=== PATIENT | female | born 1965 | race Caucasian/White ===

== ENCOUNTER → 2016-07-31 | Outpatient (CLI) | payer OTHER, MEDICARE ==
[~2016-07-31] VITALS: Ht 160 cm; Wt 81.8 kg
[~2016-07-31] MED LIST: FLONASE ALLERG9.9 ML NS; ZYRTEC10 M3 PO
[2016-07-31 11:22] VITALS: BP 185/95
== END ==
LOC: AMSURD 10:50
DX: I10 Essential (primary) hypertension (principal)

== ENCOUNTER → 2018-12-26 | Outpatient (CLI) | payer BC ==
[2016-07-31 11:22] VITALS: BP 185/95
[2018-12-26 11:01] LABS: BASO # 0.1 (0.02-0.10); EOS # 0.3 (0.04-0.40); EOS % 4.3 % (1.0-5.0); HEMATOCRIT 44.2 % (37.0-47.0); HEMOGLOBIN 14.2 g/dL (12.5-16.0); LYMPH# 2.2 (1.50-4.00); MEAN CELL VOLUME 97 fl (78-100); MEAN CORPUSCULAR HEMOGLOBIN 31 pg (27-31); MEAN CORPUSCULAR HGB CONC 32 g/dL (33-37); MEAN PLATELET VOLUME 9.8 fl (7.4-10.4); MONO # 0.7 (0.20-0.80); NEU # 3.2 (1.40-6.50); PLATELET COUNT 339 K/mm3 (130-400); RED BLOOD COUNT 4.54 M/mm3 (4.10-5.30); RED CELL DISTRIBUTION WIDTH 13.8 % (11.5-14.5); WHITE BLOOD COUNT 6.5 K/mm3 (4.8-10.8)
[2018-12-26 11:09] LABS: POTASSIUM 3.8 mmol/L (3.5-5.1)
[2018-12-26 11:10] LABS: ALBUMIN 4.1 g/dL (3.5-5.0)
[2018-12-26 11:11] LABS: CALCIUM 9.5 mg/dL (8.3-10.5)
[2018-12-26 11:12] LABS: TOTAL PROTEIN 7.1 g/dL (6.4-8.3)
[2018-12-26 11:14] LABS: TOTAL BILIRUBIN 0.4 mg/dL (0.2-1.2)
== END ==
LOC: LAB 10:34
PROVIDERS: Physician Assistant
DX: Z00.00 Encounter for general adult medical examination without abnormal findings (principal); Z13.220 Encounter for screening for lipoid disorders; Z13.1 Encounter for screening for diabetes mellitus; I10 Essential (primary) hypertension; I83.93 Asymptomatic varicose veins of bilateral lower extremities; Z88.9 Allergy status to unspecified drugs, medicaments and biological substances

== ENCOUNTER → 2019-04-09 | Day surgery (SDC) | payer BC ==
[2016-07-31 11:22] VITALS: BP 185/95
== END | disposition home or self-care (01) ==
LOC: MSO 08:40
DX: Z12.11 Encounter for screening for malignant neoplasm of colon (principal); Z80.0 Family history of malignant neoplasm of digestive organs; I10 Essential (primary) hypertension; J45.909 Unspecified asthma, uncomplicated; Z79.899 Other long term (current) drug therapy; Z87.891 Personal history of nicotine dependence; K21.9 Gastro-esophageal reflux disease without esophagitis; K57.90 Diverticulosis of intestine, part unspecified, without perforation or abscess without bleeding; K38.2 Diverticulum of appendix
CPT/HCPCS: 00812; J2704; J7120

== ENCOUNTER → 2021-12-21 | Outpatient (CLI) | payer BC ==
[2021-12-21 14:27] LABS: BASO # 0.04 K/mm3 (0.02-0.10); EOS # 0.18 K/mm3 (0.04-0.40); EOS % 2.1 % (1.0-5.0); HEMATOCRIT 44.6 % (37.0-47.0); LYMPH# 3.18 K/mm3 (1.50-4.00); MEAN CELL VOLUME 96 fl (78-100); MEAN CORPUSCULAR HEMOGLOBIN 32 pg (27-31); MEAN CORPUSCULAR HGB CONC 34 g/dL (33-37); MEAN PLATELET VOLUME 9.4 fl (7.4-10.4); MONO # 0.73 K/mm3 (0.20-0.80); NEU # 4.41 K/mm3 (1.40-6.50); PLATELET COUNT 362 K/mm3 (130-400); RED BLOOD COUNT 4.65 M/mm3 (4.10-5.30); RED CELL DISTRIBUTION WIDTH 12.8 % (11.5-14.5); WHITE BLOOD COUNT 8.6 K/mm3 (4.8-10.8)
[2021-12-21 14:33] LABS: ALBUMIN 4.4 g/dL (3.5-5.0); POTASSIUM 3.8 mmol/L (3.5-5.1)
[2021-12-21 14:34] LABS: CALCIUM 9.6 mg/dL (8.3-10.5)
[2021-12-21 14:36] LABS: TOTAL PROTEIN 7.7 g/dL (6.4-8.3)
[2021-12-21 14:37] LABS: TOTAL BILIRUBIN 0.3 mg/dL (0.2-1.2)
== END ==
LOC: LAB 13:57
PROVIDERS: Physician Assistant
DX: Z00.00 Encounter for general adult medical examination without abnormal findings (principal); Z13.29 Encounter for screening for other suspected endocrine disorder; Z13.1 Encounter for screening for diabetes mellitus; K90.9 Intestinal malabsorption, unspecified; E78.5 Hyperlipidemia, unspecified; I10 Essential (primary) hypertension; Z88.9 Allergy status to unspecified drugs, medicaments and biological substances

== ENCOUNTER → 2021-12-26 | Outpatient (CLI) | payer BC | LOC: MAMMO 15:15 | DX: Z12.31 Encounter for screening mammogram for malignant neoplasm of breast (principal); N63.10 Unspecified lump in the right breast, unspecified quadrant ==

== ENCOUNTER → 2022-03-26 | Outpatient (CLI) | payer BC | LOC: RAD 07:22 | DX: N63.15 Unspecified lump in the right breast, overlapping quadrants (principal) | CPT/HCPCS: 15989; 15990; A4648 ==

== ENCOUNTER → 2023-06-13 | Outpatient (CLI) | payer BC ==
[2023-06-13 10:58] LABS: ALBUMIN 4.1 g/dL (3.5-5.0)
[2023-06-13 10:59] LABS: CALCIUM 9.9 mg/dL (8.3-10.5)
[2023-06-13 11:02] LABS: TOTAL BILIRUBIN 0.4 mg/dL (0.2-1.2)
[2023-06-13 11:09] LABS: BASO # 0.04 K/mm3 (0.02-0.10); EOS # 0.26 K/mm3 (0.04-0.40); EOS % 3.4 % (1.0-5.0); HEMATOCRIT 44.6 % (37.0-47.0); HEMOGLOBIN 14.8 g/dL (12.5-16.0); LYMPH# 2.69 K/mm3 (1.50-4.00); MEAN CELL VOLUME 98 fl (78-100); MEAN CORPUSCULAR HEMOGLOBIN 33 pg (27-31); MEAN CORPUSCULAR HGB CONC 33 g/dL (33-37); MEAN PLATELET VOLUME 9.6 fl (7.4-10.4); MONO # 0.69 K/mm3 (0.20-0.80); NEU # 3.98 K/mm3 (1.40-6.50); PLATELET COUNT 338 K/mm3 (130-400); RED BLOOD COUNT 4.55 M/mm3 (4.10-5.30); RED CELL DISTRIBUTION WIDTH 12.8 % (11.5-14.5); WHITE BLOOD COUNT 7.7 K/mm3 (4.8-10.8)
== END ==
LOC: LAB 10:34
PROVIDERS: Physician Assistant
DX: Z13.1 Encounter for screening for diabetes mellitus (principal); Z13.29 Encounter for screening for other suspected endocrine disorder; I10 Essential (primary) hypertension; K90.9 Intestinal malabsorption, unspecified; E78.5 Hyperlipidemia, unspecified